=== PATIENT | female | born 1950 | race African-American/Black ===

== ENCOUNTER 2021-08-02 12:20 | Inpatient (IN) | payer MEDICAID, OTHER ==
[~2021-08-02] VITALS: Ht 165.1 cm; Wt 127.5 kg
[2021-08-02] MEDS ORDERED: methylPREDNISolone SOD SUCC 125 MG/2 ML VL ONE (12:26)
[2021-08-02] MEDS ORDERED: SODIUM CHLORIDE 0.9% 1,000 ML IV ONE (12:30)
[2021-08-02] MEDS ORDERED: ALBUTEROL SULF 2.5 MG/0.5ML(0.5%) NEB SOLN NEB ONE (12:30)
[2021-08-02] MEDS ORDERED: IPRATROPIUM BROM 0.5 MG/2.5ML INH SOL NEB ONE (12:30)
[2021-08-02] MEDS ORDERED: methylPREDNISolone SOD SUCC 125 MG/2 ML VL IV ONE (12:30)
[2021-08-02 12:50] LABS: Red Cell Distribution Width 17.9 % (11.8-14.3)
[2021-08-02 12:52] LABS: Basophils # (auto) 0.1 10 ^3/uL (0-0.2); Basophils % (auto) 1.5 % (0.0-2.0); Eosinophils # (auto) 0 10 ^3/uL (0-0.8); Eosinophils % (auto) 0.5 % (0.0-7.0); Hematocrit 38.4 % (36.0-46.0); Hemoglobin 12.1 g/dL (12.2-16.2); Lymphocytes # (auto) 1.2 10 ^3/uL (0.4-5.4); Lymphocytes % (auto) 20.2 % (10.0-50.0); Mean Corpuscular Hemoglobin 35.7 pg (28.0-32.0); Mean Corpuscular Hgb Conc. 31.4 g/dL (32.0-36.0); Mean Corpuscular Volume 113.5 fL (80.0-100.0); Monocytes # (auto) 0.1 10 ^3/uL (0-1.3); Monocytes % (auto) 1.8 % (0.0-12.0); Neutrophils # (auto) 4.6 10 ^3/uL (1.6-8.6); Nucleated Red Blood Cells % 0.5 %; Red Blood Cells 3.39 10^6/uL (4.0-5.20); White Blood Cell 6.1 10^3/uL (4.4-10.8)
[2021-08-02] MEDS ORDERED: LORazepam 2MG/ML-1ML VIAL ONE (12:58)
[2021-08-02 13:08] LABS: Albumin 2.9 g/dL (3.4-5.0); Magnesium 2.4 mg/dL (1.6-2.6); Potassium 3.9 mmol/L (3.5-5.1)
[2021-08-02 13:13] LABS: INR 1.19 (0.9-1.15); Partial Thromboplastin Time 23.5 sec (23.6-33.0)
[2021-08-02 13:14] LABS: BUN/Creatinine Ratio 10.1; Bilirubin, Total 0.6 mg/dL (0.2-1.0); Total Protein 7.6 g/dL (6.4-8.2)
[2021-08-02] MEDS ORDERED: FUROSEMIDE 40 MG/4 ML VIAL IV ONE (13:30)
[2021-08-02] MEDS ORDERED: LORazepam 2MG/ML-1ML VIAL IV ONE ×2 (14:00→16:00)
[2021-08-02 14:34] VITALS: BP 173/101
[2021-08-02] MEDS ORDERED: ENOXAPARIN SOD 40 MG/0.4 ML SYRINGE SC ONE (15:15)
[2021-08-02] MEDS ORDERED: ONDANSETRON HCL 4 MG/2 ML VIAL IV PRN (15:15)
[2021-08-02] MEDS ORDERED: cefTRIAXone 1GM/50ML D5W 50 ML IV ONE (15:15)
[2021-08-02] MEDS ORDERED: IPRATROPIUM BROM 0.5 MG/2.5ML INH SOL NEB PRN (15:15)
[2021-08-02] MEDS ORDERED: levoFLOXacin 500MG 100 ML IV ONE (15:15)
[2021-08-02] MEDS ORDERED: NITROGLYCERIN 0.4 MG SL TAB SL PRN (15:15)
[2021-08-02] MEDS ORDERED: ACETAMINOPHEN 325 MG TAB PO PRN (15:15)
[2021-08-02] MEDS ORDERED: MORPHINE SULFATE INJECTION 2 MG/ML SYRG IV PRN (15:15)
[2021-08-02] MEDS ORDERED: DEXTROSE (50%) 50ML SYRG IV PRN (15:15)
[2021-08-02 15:36] VITALS: BP 156/83
[2021-08-02] MEDS: ACCU-CHEK COMFORT CURVE STRIP VI SCH ×2 (16:23→20:20)
[2021-08-02] MEDS: InsuLIN REG 1unit/0.01ml Soln (100units/ml) SC SCH ×2 (16:23→20:38)
[2021-08-02 16:25] LABS: Urine Bacteria MANY /hpf (None Seen); Urine Blood 2+ /uL (Negative); Urine Hyaline Cast MOD /lpf (0 - 2); Urine Mucus FEW (None Seen); Urine Specific Gravity 1.013 (1.001-1.035); Urine WBC 65 /hpf (0 - 5)
[2021-08-02] MEDS ORDERED: ALBUTEROL SULF 2.5 MG/0.5ML(0.5%) NEB SOLN NEB SCH (18:00)
[2021-08-02] MEDS ORDERED: ENOXAPARIN SOD 30 MG/0.3 ML SYRINGE IV ONE (18:00)
[2021-08-02] MEDS ORDERED: IPRATROPIUM BROM 0.5 MG/2.5ML INH SOL NEB SCH (18:00)
[2021-08-02 18:26] VITALS: BP 125/62
[2021-08-02] MEDS: ENOXAPARIN SOD 120 MG/0.8 ML SYRINGE SC SCH (18:30)
[2021-08-02] MEDS: ALBUTEROL SULF 2.5 MG/0.5ML(0.5%) NEB SOLN NEB SCH (18:47)
[2021-08-02] MEDS ORDERED: SUCCINYLCHOLINE CHLORIDE 20 MG/ML 10ML VIAL IV ONE (19:39)
[2021-08-02] MEDS ORDERED: ETOMIDATE (2MG/ML) 20ML VIAL IV ONE (19:39)
[2021-08-02 19:46] VITALS: BP 126/54
[2021-08-02] MEDS ORDERED: methylPREDNISolone SOD SUCC 40 MG/ML VL IV SCH (22:00)
[2021-08-02 22:25] VITALS: BP 127/79
[2021-08-02] MEDS: ATORVASTATIN 20 MG TAB PO SCH (22:46)
[2021-08-03] MEDS: ACCU-CHEK COMFORT CURVE STRIP VI SCH ×6 (00:28→20:52)
[2021-08-03] MEDS: InsuLIN REG 1unit/0.01ml Soln (100units/ml) SC SCH ×6 (00:39→20:53)
[2021-08-03] MEDS ORDERED: diazePAM 5 MG TAB PO ONE (03:15)
[2021-08-03 03:44] VITALS: BP 118/71
[2021-08-03] MEDS: ALBUTEROL SULF 2.5 MG/0.5ML(0.5%) NEB SOLN NEB SCH ×6 (03:49→22:39)
[2021-08-03] MEDS: IPRATROPIUM BROM 0.5 MG/2.5ML INH SOL NEB SCH ×6 (03:50→22:39)
[2021-08-03 07:22] LABS: Basophils # (auto) 0 10 ^3/uL (0-0.2); Basophils % (auto) 0.1 % (0.0-2.0); Eosinophils # (auto) 0 10 ^3/uL (0-0.8); Monocytes # (auto) 0.9 10 ^3/uL (0-1.3); Red Cell Distribution Width 17.6 % (11.8-14.3)
[2021-08-03 07:25] LABS: Hematocrit 33.5 % (36.0-46.0); Hemoglobin 10.9 g/dL (12.2-16.2); Lymphocytes # (auto) 0.7 10 ^3/uL (0.4-5.4); Lymphocytes % (auto) 4.7 % (10.0-50.0); Mean Corpuscular Hemoglobin 35.3 pg (28.0-32.0); Mean Corpuscular Hgb Conc. 32.5 g/dL (32.0-36.0); Mean Corpuscular Volume 108.8 fL (80.0-100.0); Monocytes % (auto) 5.9 % (0.0-12.0); Neutrophils # (auto) 13.7 10 ^3/uL (1.6-8.6); Neutrophils % (auto) 89.3 % (37.0-80.0); Nucleated Red Blood Cells % 0.1 %; Red Blood Cells 3.08 10^6/uL (4.0-5.20); White Blood Cell 15.3 10^3/uL (4.4-10.8)
[2021-08-03 07:49] LABS: BUN/Creatinine Ratio 15.6; Calcium 6.7 mg/dL (8.5-10.1); Magnesium 2.4 mg/dL (1.6-2.6)
[2021-08-03] MEDS ORDERED: cefTRIAXone 1GM/50ML D5W 50 ML IV SCH (09:00)
[2021-08-03] MEDS ORDERED: AZITHROMYCIN 500MG/ 250ML 250 ML IV SCH (10:00)
[2021-08-03] MEDS ORDERED: ENOXAPARIN SOD 40 MG/0.4 ML SYRINGE SC SCH (10:00)
[2021-08-03] MEDS: CLOPIDOGREL BISULFATE 75 MG TAB PO SCH (10:21)
[2021-08-03] MEDS: levoFLOXacin 250MG 50 ML IV SCH (10:21)
[2021-08-03] MEDS: DOCUSATE SOD 100 MG CAP PO SCH (10:21)
[2021-08-03] MEDS: POTASSIUM CHL 20 Meq TABLET PO SCH ×2 (10:21→22:14)
[2021-08-03] MEDS: LOSARTAN POTASSIUM 25 MG TAB PO SCH (10:21)
[2021-08-03] MEDS: SPIRONOLACTONE 25 MG TAB PO SCH (10:21)
[2021-08-03] MEDS: cefTRIAXone 1GM/50ML D5W 50 ML IV SCH (10:21)
[2021-08-03] MEDS: methylPREDNISolone SOD SUCC 125 MG/2 ML VL IV SCH (10:21)
[2021-08-03] MEDS: ENOXAPARIN SOD 120 MG/0.8 ML SYRINGE SC SCH ×2 (10:49→22:00)
[2021-08-03] MEDS: FUROSEMIDE INJECTION 100 MG in D5W 5% 100 ML IV SCH ×2 (11:05→20:11)
[2021-08-03] MEDS ORDERED: ONDANSETRON HCL 4 MG/2 ML VIAL IV PRN (12:00)
[2021-08-03] MEDS: MORPHINE SULFATE INJECTION 2 MG/ML SYRG IV PRN ×3 (12:04→20:56)
[2021-08-03 20:12] VITALS: BP 111/51
[2021-08-03 22:00] VITALS: BP 107/60
[2021-08-03] MEDS: ATORVASTATIN 20 MG TAB PO SCH (22:14)
[2021-08-04] MEDS: MORPHINE SULFATE INJECTION 2 MG/ML SYRG IV PRN ×5 (00:40→20:55)
[2021-08-04] MEDS: ACCU-CHEK COMFORT CURVE STRIP VI SCH ×6 (01:28→20:17)
[2021-08-04] MEDS: InsuLIN REG 1unit/0.01ml Soln (100units/ml) SC SCH ×6 (01:28→20:36)
[2021-08-04] MEDS ORDERED: LEVO175T62 PO (01:49)
[2021-08-04] MEDS ORDERED: METH2.5T PO (01:55)
[2021-08-04] MEDS ORDERED: AMIT25TA12 PO (01:55)
[2021-08-04] MEDS ORDERED: HYDR25TA4 PO (01:55)
[2021-08-04] MEDS ORDERED: LOSA25TA38 PO (01:55)
[2021-08-04] MEDS ORDERED: ATOR10TA52 PO (01:55)
[2021-08-04] MEDS ORDERED: SULF500T8 PO (01:55)
[2021-08-04] MEDS ORDERED: POTA10TA51 PO (01:55)
[2021-08-04] MEDS ORDERED: TRAZ100T3 PO (01:55)
[2021-08-04] MEDS ORDERED: GLIP5TAB12 PO (01:55)
[2021-08-04] MEDS ORDERED: FOLI1TAB6 PO (01:55)
[2021-08-04 05:00] VITALS: BP 118/70
[2021-08-04] MEDS: FUROSEMIDE INJECTION 100 MG in D5W 5% 100 ML IV SCH ×2 (05:10→16:11)
[2021-08-04] MEDS: ALBUTEROL SULF 2.5 MG/0.5ML(0.5%) NEB SOLN NEB SCH ×5 (06:18→21:57)
[2021-08-04] MEDS: IPRATROPIUM BROM 0.5 MG/2.5ML INH SOL NEB SCH ×5 (06:18→21:57)
[2021-08-04 06:54] LABS: Basophils # (auto) 0 10 ^3/uL (0-0.2); Eosinophils # (auto) 0 10 ^3/uL (0-0.8); Hemoglobin 10.2 g/dL (12.2-16.2); Monocytes # (auto) 0.6 10 ^3/uL (0-1.3)
[2021-08-04 06:56] LABS: Basophils % (auto) 0.1 % (0.0-2.0); Hematocrit 30.8 % (36.0-46.0); Lymphocytes % (auto) 7.9 % (10.0-50.0); Mean Corpuscular Hemoglobin 35.3 pg (28.0-32.0); Mean Corpuscular Hgb Conc. 33.1 g/dL (32.0-36.0); Monocytes % (auto) 5.2 % (0.0-12.0); Neutrophils # (auto) 10.5 10 ^3/uL (1.6-8.6); Neutrophils % (auto) 86.8 % (37.0-80.0); Red Blood Cells 2.89 10^6/uL (4.0-5.20); Red Cell Distribution Width 17.3 % (11.8-14.3); White Blood Cell 12.1 10^3/uL (4.4-10.8)
[2021-08-04 06:59] LABS: Mean Corpuscular Volume 106.7 fL (80.0-100.0)
[2021-08-04 07:09] LABS: BUN/Creatinine Ratio 18.7; Calcium 6.4 mg/dL (8.5-10.1); Potassium 4.7 mmol/L (3.5-5.1)
[2021-08-04] MEDS ORDERED: IOHEXOL 350 MG/ML 100ML IJ ONE (08:10)
[2021-08-04] MEDS ORDERED: HEPARIN IN NS 1000Units/500mL 1,500 ML ONE (08:10)
[2021-08-04] MEDS ORDERED: LIDOCAINE 2%HCL (LOCAL ANESTH.) INJ 20ML MDV ONE (08:10)
[2021-08-04] MEDS ORDERED: fentaNYL CITRATE 100 MCG/2 ML VL ONE (08:29)
[2021-08-04] MEDS ORDERED: ANGIOMAX 250 MG VIAL IV ONE (08:29)
[2021-08-04] MEDS ORDERED: SODIUM CHL 0.9% 50 ML ONE ×2 (08:29→08:49)
[2021-08-04] MEDS ORDERED: MIDAZOLAM HCL 2MG/2ML 2ml VIAL (1mg/ml) ONE (08:29)
[2021-08-04 09:00] VITALS: BP 119/58
[2021-08-04] MEDS ORDERED: IODIXANOL 320MG/ML 100ML BTL IV ONE (09:40)
[2021-08-04] MEDS: methylPREDNISolone SOD SUCC 125 MG/2 ML VL IV SCH (11:51)
[2021-08-04] MEDS: CLOPIDOGREL BISULFATE 75 MG TAB PO SCH (11:52)
[2021-08-04] MEDS: cefTRIAXone 1GM/50ML D5W 50 ML IV SCH (11:52)
[2021-08-04] MEDS: DOCUSATE SOD 100 MG CAP PO SCH (11:52)
[2021-08-04] MEDS: POTASSIUM CHL 20 Meq TABLET PO SCH ×2 (11:52→21:48)
[2021-08-04] MEDS: ENOXAPARIN SOD 120 MG/0.8 ML SYRINGE SC SCH ×2 (11:52→21:49)
[2021-08-04] MEDS: SPIRONOLACTONE 25 MG TAB PO SCH (11:53)
[2021-08-04] MEDS: LOSARTAN POTASSIUM 25 MG TAB PO SCH (11:54)
[2021-08-04 13:00] VITALS: BP 117/66
[2021-08-04] MEDS: levoFLOXacin 250MG 50 ML IV SCH (13:00)
[2021-08-04 14:21] LABS: INR 1.51 (0.9-1.15); Partial Thromboplastin Time 56.5 sec (23.6-33.0)
[2021-08-04] MEDS: NITROGLYCERIN 0.4 MG SL TAB SL PRN ×3 (16:22→16:49)
[2021-08-04] MEDS ORDERED: HEPARIN DRIP/D5W 100UNITS/ML 250 ML IV SCH (17:30)
[2021-08-04 20:05] LABS: Basophils # (auto) 0 10 ^3/uL (0-0.2); Eosinophils # (auto) 0 10 ^3/uL (0-0.8); Hemoglobin 10.6 g/dL (12.2-16.2); Lymphocytes # (auto) 0.3 10 ^3/uL (0.4-5.4); Monocytes # (auto) 0.1 10 ^3/uL (0-1.3)
[2021-08-04 20:06] LABS: Basophils % (auto) 0.1 % (0.0-2.0); Hematocrit 32.7 % (36.0-46.0); Lymphocytes % (auto) 3.1 % (10.0-50.0); Mean Corpuscular Hemoglobin 34.6 pg (28.0-32.0); Mean Corpuscular Hgb Conc. 32.3 g/dL (32.0-36.0); Mean Corpuscular Volume 107.1 fL (80.0-100.0); Monocytes % (auto) 1.7 % (0.0-12.0); Neutrophils # (auto) 7.9 10 ^3/uL (1.6-8.6); Neutrophils % (auto) 95.1 % (37.0-80.0); Red Blood Cells 3.05 10^6/uL (4.0-5.20); Red Cell Distribution Width 17.8 % (11.8-14.3); White Blood Cell 8.3 10^3/uL (4.4-10.8)
[2021-08-04 20:20] LABS: INR 1.24 (0.9-1.15)
[2021-08-04] MEDS: ATORVASTATIN 20 MG TAB PO SCH (21:48)
[2021-08-04 21:59] VITALS: BP 126/77
[2021-08-05] MEDS: InsuLIN REG 1unit/0.01ml Soln (100units/ml) SC SCH ×6 (00:25→20:29)
[2021-08-05] MEDS: ACCU-CHEK COMFORT CURVE STRIP VI SCH ×7 (00:25→23:59)
[2021-08-05] MEDS: MORPHINE SULFATE INJECTION 2 MG/ML SYRG IV PRN ×6 (00:30→23:51)
[2021-08-05 01:52] LABS: INR 1.23 (0.9-1.15); Partial Thromboplastin Time 41.1 sec (23.6-33.0)
[2021-08-05] MEDS: FUROSEMIDE INJECTION 100 MG in D5W 5% 100 ML IV SCH ×3 (02:32→21:06)
[2021-08-05 05:57] VITALS: BP 121/63
[2021-08-05] MEDS: IPRATROPIUM BROM 0.5 MG/2.5ML INH SOL NEB SCH ×5 (06:30→22:28)
[2021-08-05] MEDS: ALBUTEROL SULF 2.5 MG/0.5ML(0.5%) NEB SOLN NEB SCH ×5 (06:30→22:28)
[2021-08-05 07:40] LABS: Basophils # (auto) 0 10 ^3/uL (0-0.2); Eosinophils # (auto) 0 10 ^3/uL (0-0.8); Hemoglobin 10.2 g/dL (12.2-16.2); Lymphocytes # (auto) 0.6 10 ^3/uL (0.4-5.4); Monocytes # (auto) 0.5 10 ^3/uL (0-1.3); White Blood Cell 9.5 10^3/uL (4.4-10.8)
[2021-08-05 07:43] LABS: Basophils % (auto) 0.2 % (0.0-2.0); Hematocrit 30.6 % (36.0-46.0); Lymphocytes % (auto) 6.2 % (10.0-50.0); Mean Corpuscular Hemoglobin 35.2 pg (28.0-32.0); Mean Corpuscular Hgb Conc. 33.2 g/dL (32.0-36.0); Monocytes % (auto) 4.9 % (0.0-12.0); Neutrophils # (auto) 8.4 10 ^3/uL (1.6-8.6); Neutrophils % (auto) 88.7 % (37.0-80.0); Nucleated Red Blood Cells % 0.1 %; Red Blood Cells 2.89 10^6/uL (4.0-5.20); Red Cell Distribution Width 17.7 % (11.8-14.3)
[2021-08-05 07:52] LABS: Calcium 6.3 mg/dL (8.5-10.1); Potassium 4.9 mmol/L (3.5-5.1)
[2021-08-05 07:54] LABS: Mean Corpuscular Volume 106.1 fL (80.0-100.0)
[2021-08-05 07:56] LABS: BUN/Creatinine Ratio 22.4
[2021-08-05] MEDS: levoFLOXacin 250MG 50 ML IV SCH (08:25)
[2021-08-05] MEDS: DOCUSATE SOD 100 MG CAP PO SCH (08:26)
[2021-08-05] MEDS: methylPREDNISolone SOD SUCC 125 MG/2 ML VL IV SCH (08:26)
[2021-08-05] MEDS: CLOPIDOGREL BISULFATE 75 MG TAB PO SCH (08:26)
[2021-08-05] MEDS: POTASSIUM CHL 20 Meq TABLET PO SCH ×2 (08:27→21:01)
[2021-08-05] MEDS: LOSARTAN POTASSIUM 25 MG TAB PO SCH (08:27)
[2021-08-05] MEDS: SPIRONOLACTONE 25 MG TAB PO SCH (08:27)
[2021-08-05 09:00] VITALS: BP 126/78
[2021-08-05] MEDS ORDERED: HEPARIN DRIP/D5W 100UNITS/ML 250 ML IV SCH (09:15)
[2021-08-05 09:42] LABS: INR 1.18 (0.9-1.15); Partial Thromboplastin Time 32.3 sec (23.6-33.0)
[2021-08-05] MEDS ORDERED: HEPARIN SODIUM (PORCINE) 5000 UNITS/ML 1ML VIAL IV ONE (10:30)
[2021-08-05] MEDS: HEPARIN DRIP/D5W 100UNITS/ML 250 ML IV SCH (11:25)
[2021-08-05 11:45] VITALS: BP 126/78
[2021-08-05 12:50] VITALS: BP 123/71
[2021-08-05 16:59] VITALS: BP 132/80
[2021-08-05 19:37] LABS: INR 1.2 (0.9-1.15); Partial Thromboplastin Time 36.1 sec (23.6-33.0)
[2021-08-05] MEDS: FAMOTIDINE 20 MG TAB PO SCH (21:02)
[2021-08-05] MEDS: ATORVASTATIN 20 MG TAB PO SCH (21:02)
[2021-08-05 22:00] VITALS: BP 119/71
[2021-08-06] MEDS: InsuLIN REG 1unit/0.01ml Soln (100units/ml) SC SCH ×6 (00:06→19:52)
[2021-08-06 02:57] LABS: INR 1.21 (0.9-1.15); Partial Thromboplastin Time 49.6 sec (23.6-33.0)
[2021-08-06] MEDS: ACCU-CHEK COMFORT CURVE STRIP VI SCH ×5 (04:08→19:52)
[2021-08-06 05:00] VITALS: BP 122/73
[2021-08-06] MEDS: MORPHINE SULFATE INJECTION 2 MG/ML SYRG IV PRN ×4 (06:02→16:22)
[2021-08-06] MEDS: HEPARIN DRIP/D5W 100UNITS/ML 250 ML IV SCH ×2 (06:09→19:45)
[2021-08-06] MEDS: IPRATROPIUM BROM 0.5 MG/2.5ML INH SOL NEB SCH ×4 (07:23→22:05)
[2021-08-06] MEDS: ALBUTEROL SULF 2.5 MG/0.5ML(0.5%) NEB SOLN NEB SCH ×4 (07:23→22:05)
[2021-08-06 07:47] LABS: Basophils # (auto) 0 10 ^3/uL (0-0.2); Basophils % (auto) 0.1 % (0.0-2.0); Eosinophils # (auto) 0 10 ^3/uL (0-0.8); Hematocrit 31.9 % (36.0-46.0); Hemoglobin 10.6 g/dL (12.2-16.2); Lymphocytes # (auto) 1.1 10 ^3/uL (0.4-5.4); Lymphocytes % (auto) 13.8 % (10.0-50.0); Mean Corpuscular Hemoglobin 35.3 pg (28.0-32.0); Mean Corpuscular Hgb Conc. 33.2 g/dL (32.0-36.0); Mean Corpuscular Volume 106.5 fL (80.0-100.0); Monocytes # (auto) 0.4 10 ^3/uL (0-1.3); Monocytes % (auto) 5.3 % (0.0-12.0); Neutrophils # (auto) 6.6 10 ^3/uL (1.6-8.6); Neutrophils % (auto) 80.8 % (37.0-80.0); Red Cell Distribution Width 17.4 % (11.8-14.3); White Blood Cell 8.2 10^3/uL (4.4-10.8)
[2021-08-06 07:53] LABS: Calcium 6.2 mg/dL (8.5-10.1); INR 1.21 (0.9-1.15); Partial Thromboplastin Time 50.9 sec (23.6-33.0); Potassium 4.2 mmol/L (3.5-5.1)
[2021-08-06 07:56] LABS: BUN/Creatinine Ratio 23.9
[2021-08-06] MEDS: SPIRONOLACTONE 25 MG TAB PO SCH (08:59)
[2021-08-06] MEDS: DOCUSATE SOD 100 MG CAP PO SCH (08:59)
[2021-08-06] MEDS: POTASSIUM CHL 20 Meq TABLET PO SCH ×2 (08:59→21:35)
[2021-08-06 09:00] VITALS: BP 108/59
[2021-08-06] MEDS: CLOPIDOGREL BISULFATE 75 MG TAB PO SCH (09:00)
[2021-08-06] MEDS: LOSARTAN POTASSIUM 25 MG TAB PO SCH (09:00)
[2021-08-06] MEDS: methylPREDNISolone SOD SUCC 125 MG/2 ML VL IV SCH (09:02)
[2021-08-06] MEDS: levoFLOXacin 250MG 50 ML IV SCH (09:32)
[2021-08-06] MEDS ORDERED: FAMOTIDINE 20 MG TAB PO SCH (10:00)
[2021-08-06 13:00] VITALS: BP 146/103
[2021-08-06] MEDS: FUROSEMIDE INJECTION 100 MG in D5W 5% 100 ML IV SCH ×2 (13:25→17:45)
[2021-08-06 14:28] LABS: INR 1.24 (0.9-1.15)
[2021-08-06 14:31] LABS: Partial Thromboplastin Time 77.7 sec (23.6-33.0)
[2021-08-06 16:58] VITALS: BP 145/87
[2021-08-06 21:34] VITALS: BP 96/56
[2021-08-06] MEDS: FAMOTIDINE 20 MG TAB PO SCH (21:35)
[2021-08-06] MEDS: ATORVASTATIN 20 MG TAB PO SCH (21:35)
[2021-08-06 21:47] LABS: INR 1.22 (0.9-1.15); Partial Thromboplastin Time 60.3 sec (23.6-33.0)
[2021-08-06] MEDS ORDERED: HYDROcodone-ACET 5/325MG TAB PO PRN (22:15)
[2021-08-06] MEDS: HYDROcodone-ACET 5/325MG TAB PO PRN (22:26)
[2021-08-07] MEDS: ACCU-CHEK COMFORT CURVE STRIP VI SCH ×6 (00:02→20:13)
[2021-08-07] MEDS: FUROSEMIDE INJECTION 100 MG in D5W 5% 100 ML IV SCH ×3 (02:21→23:45)
[2021-08-07] MEDS: InsuLIN REG 1unit/0.01ml Soln (100units/ml) SC SCH ×6 (04:00→20:14)
[2021-08-07 04:21] LABS: Basophils # (auto) 0 10 ^3/uL (0-0.2); Basophils % (auto) 0.2 % (0.0-2.0); Eosinophils # (auto) 0 10 ^3/uL (0-0.8); Hematocrit 33.3 % (36.0-46.0); Hemoglobin 10.9 g/dL (12.2-16.2); Monocytes # (auto) 0.4 10 ^3/uL (0-1.3)
[2021-08-07 04:24] LABS: Lymphocytes # (auto) 0.9 10 ^3/uL (0.4-5.4); Mean Corpuscular Hgb Conc. 32.9 g/dL (32.0-36.0); Mean Corpuscular Volume 106.4 fL (80.0-100.0); Monocytes % (auto) 5.7 % (0.0-12.0); Neutrophils # (auto) 5.8 10 ^3/uL (1.6-8.6); Neutrophils % (auto) 82.1 % (37.0-80.0); Nucleated Red Blood Cells % 0.2 %; Red Blood Cells 3.13 10^6/uL (4.0-5.20); Red Cell Distribution Width 17.2 % (11.8-14.3); White Blood Cell 7.1 10^3/uL (4.4-10.8)
[2021-08-07] MEDS: HYDROcodone-ACET 5/325MG TAB PO PRN ×3 (04:30→18:01)
[2021-08-07 04:40] LABS: Potassium 4.3 mmol/L (3.5-5.1)
[2021-08-07 04:47] LABS: BUN/Creatinine Ratio 23.1; Calcium 6.3 mg/dL (8.5-10.1)
[2021-08-07 05:00] VITALS: BP 110/60
[2021-08-07 05:03] LABS: INR 1.23 (0.9-1.15); Partial Thromboplastin Time 56.1 sec (23.6-33.0)
[2021-08-07] MEDS: ALBUTEROL SULF 2.5 MG/0.5ML(0.5%) NEB SOLN NEB SCH ×6 (05:50→22:39)
[2021-08-07] MEDS: IPRATROPIUM BROM 0.5 MG/2.5ML INH SOL NEB SCH ×6 (05:50→22:39)
[2021-08-07 08:00] VITALS: BP 138/85
[2021-08-07] MEDS: DOCUSATE SOD 100 MG CAP PO SCH (08:30)
[2021-08-07] MEDS: SPIRONOLACTONE 25 MG TAB PO SCH (08:31)
[2021-08-07] MEDS: CLOPIDOGREL BISULFATE 75 MG TAB PO SCH (08:31)
[2021-08-07] MEDS: POTASSIUM CHL 20 Meq TABLET PO SCH ×2 (08:31→21:19)
[2021-08-07] MEDS: LOSARTAN POTASSIUM 25 MG TAB PO SCH (08:32)
[2021-08-07] MEDS: methylPREDNISolone SOD SUCC 125 MG/2 ML VL IV SCH (08:33)
[2021-08-07] MEDS: levoFLOXacin 250MG 50 ML IV SCH (12:15)
[2021-08-07 12:43] VITALS: BP 142/95
[2021-08-07] MEDS: HEPARIN DRIP/D5W 100UNITS/ML 250 ML IV SCH (13:00)
[2021-08-07 13:42] LABS: INR 1.24 (0.9-1.15)
[2021-08-07] MEDS: MORPHINE SULFATE INJECTION 2 MG/ML SYRG IV PRN (14:14)
[2021-08-07 16:29] VITALS: BP 156/82
[2021-08-07] MEDS: FAMOTIDINE 20 MG TAB PO SCH (21:19)
[2021-08-07] MEDS: ATORVASTATIN 20 MG TAB PO SCH (21:19)
[2021-08-07 21:30] LABS: INR 1.25 (0.9-1.15); Partial Thromboplastin Time 60.9 sec (23.6-33.0)
[2021-08-07 22:00] VITALS: BP 118/56
[2021-08-08] MEDS: InsuLIN REG 1unit/0.01ml Soln (100units/ml) SC SCH
[2021-08-08] MEDS: ACCU-CHEK COMFORT CURVE STRIP VI SCH (00:04)
[2021-08-08] MEDS: HYDROcodone-ACET 5/325MG TAB PO PRN (00:05)
[2021-08-08] MEDS: HEPARIN DRIP/D5W 100UNITS/ML 250 ML IV SCH (02:39)
[2021-08-08 03:16] LABS: Basophils # (auto) 0 10 ^3/uL (0-0.2); Eosinophils # (auto) 0 10 ^3/uL (0-0.8); Eosinophils % (auto) 0.1 % (0.0-7.0); Hemoglobin 12.2 g/dL (12.2-16.2); Monocytes # (auto) 0.7 10 ^3/uL (0-1.3); Nucleated Red Blood Cells % 0.2 %
[2021-08-08 03:19] LABS: Basophils % (auto) 0.3 % (0.0-2.0); Hematocrit 37.4 % (36.0-46.0); Lymphocytes # (auto) 1.4 10 ^3/uL (0.4-5.4); Lymphocytes % (auto) 14.9 % (10.0-50.0); Mean Corpuscular Hemoglobin 34.4 pg (28.0-32.0); Mean Corpuscular Hgb Conc. 32.6 g/dL (32.0-36.0); Mean Corpuscular Volume 105.4 fL (80.0-100.0); Monocytes % (auto) 6.9 % (0.0-12.0); Neutrophils # (auto) 7.4 10 ^3/uL (1.6-8.6); Neutrophils % (auto) 77.8 % (37.0-80.0); Red Blood Cells 3.55 10^6/uL (4.0-5.20); Red Cell Distribution Width 16.9 % (11.8-14.3); White Blood Cell 9.4 10^3/uL (4.4-10.8)
[2021-08-08 03:35] LABS: BUN/Creatinine Ratio 22.3; Calcium 6.5 mg/dL (8.5-10.1); Potassium 3.5 mmol/L (3.5-5.1)
[2021-08-08 03:41] LABS: INR 1.24 (0.9-1.15); Partial Thromboplastin Time 65.3 sec (23.6-33.0)
== END 2021-08-08 03:31 | disposition short-term general hospital (02) | DRG 280 ==
LOC: ER 12:20 → EDBD 12:20 → TELE 15:32 → TELE-WESTW 08-03 19:58
PROVIDERS: ADMIT Hospitalist; ATTEND Internal Medicine
PROC: 5A09357 Assistance with Respiratory Ventilation, Less than 24 Consecutive Hours, Continuous Positive Airway Pressure (ICD-10-PCS; 2021-08-02)
PROC: B211YZZ Fluoroscopy of Multiple Coronary Arteries using Other Contrast (ICD-10-PCS; 2021-08-04)
PROC: 05HA33Z Insertion of Infusion Device into Left Brachial Vein, Percutaneous Approach (ICD-10-PCS; principal; 2021-08-05)
PROC: B54NZZA Ultrasonography of Left Upper Extremity Veins, Guidance (ICD-10-PCS; 2021-08-05)
DX: I21.4 Non-ST elevation (NSTEMI) myocardial infarction (principal); I50.23 Acute on chronic systolic (congestive) heart failure; J96.00 Acute respiratory failure, unspecified whether with hypoxia or hypercapnia; E44.0 Moderate protein-calorie malnutrition; J45.901 Unspecified asthma with (acute) exacerbation; Z68.42 Body mass index [BMI] 45.0-49.9, adult; I13.0 Hypertensive heart and chronic kidney disease with heart failure and stage 1 through stage 4 chronic kidney disease, or unspecified chronic kidney disease; N17.9 Acute kidney failure, unspecified; E11.65 Type 2 diabetes mellitus with hyperglycemia; D75.89 Other specified diseases of blood and blood-forming organs; D64.9 Anemia, unspecified; N18.30 Chronic kidney disease, stage 3 unspecified; E11.22 Type 2 diabetes mellitus with diabetic chronic kidney disease; I25.10 Atherosclerotic heart disease of native coronary artery without angina pectoris; E66.01 Morbid (severe) obesity due to excess calories; E78.5 Hyperlipidemia, unspecified; G62.9 Polyneuropathy, unspecified; I35.0 Nonrheumatic aortic (valve) stenosis; I44.7 Left bundle-branch block, unspecified; R00.1 Bradycardia, unspecified; Z20.822 Contact with and (suspected) exposure to COVID-19; Z86.73 Personal history of transient ischemic attack (TIA), and cerebral infarction without residual deficits; Z95.1 Presence of aortocoronary bypass graft
CPT/HCPCS: 36415; 36600; 71045; 80048; 80053; 80061; 81001; 82805; 82962; 83735; 83880; 84443; 84484; 85025; 85379; 85610; 85730; 86850; 86900; 86901; 87040; 87081; 87426; 93005; 93306; 93454; 93970; 94640; 94660; 96361; 96365; 96367; 96375; 99152; 99153; 99291; G0378; J0330; J0696; J1815; J1956; J2250; J2405; J7060; Q9967

== ENCOUNTER 2021-10-22 17:08 | Emergency (ER) | payer OTHER ==
[~2021-10-22] VITALS: Ht 172.7 cm; Wt 130.6 kg
[~2021-10-22 17:08] MED LIST: AMIT25TA12 PO; ATOR10TA52 PO; FOLI1TAB6 PO; GLIP5TAB12 PO; HYDR25TA4 PO; LEVO175T62 PO; LOSA25TA38 PO; METH2.5T PO; POTA10TA51 PO; SULF500T8 PO; TRAZ100T3 PO
[2021-10-22] MEDS ORDERED: HYDROcodone-ACET 7.5/325MG TAB PO ONE (19:00)
[2021-10-22] MEDS ORDERED: HYDR-4609 PO (21:47)
[2021-10-22 22:11] VITALS: BP 144/81
== END 2021-10-22 22:12 | disposition home or self-care (01) ==
LOC: ER 17:08
DX: M79.671 Pain in right foot (principal); J45.909 Unspecified asthma, uncomplicated; E11.9 Type 2 diabetes mellitus without complications; E78.5 Hyperlipidemia, unspecified; E03.9 Hypothyroidism, unspecified; I10 Essential (primary) hypertension; Z90.89 Acquired absence of other organs; Z79.899 Other long term (current) drug therapy
CPT/HCPCS: 73630; 93971

== ENCOUNTER 2022-05-22 22:10 | Emergency (ER) | payer OTHER ==
[~2022-05-22] VITALS: Ht 167.6 cm; Wt 150.0 kg
[~2022-05-22 22:10] MED LIST changes: +HYDR-4609 PO
[2022-05-23 00:03] LABS: Basophils # (auto) 0 10 ^3/uL (0-0.2); Mean Corpuscular Hgb Conc. 30.3 g/dL (32.0-36.0); Monocytes # (auto) 0.5 10 ^3/uL (0-1.3); Monocytes % (auto) 8.3 % (0.0-12.0)
[2022-05-23 00:04] LABS: Basophils % (auto) 0.4 % (0.0-2.0); Eosinophils # (auto) 0 10 ^3/uL (0-0.8); Eosinophils % (auto) 0.1 % (0.0-7.0); Hematocrit 26.5 % (36.0-46.0); Lymphocytes # (auto) 0.3 10 ^3/uL (0.4-5.4); Lymphocytes % (auto) 5.5 % (10.0-50.0); Mean Corpuscular Hemoglobin 37.4 pg (28.0-32.0); Mean Corpuscular Volume 123.4 fL (80.0-100.0); Neutrophils # (auto) 5.1 10 ^3/uL (1.6-8.6); Neutrophils % (auto) 85.7 % (37.0-80.0); Nucleated Red Blood Cells % 1.1 %; Red Blood Cells 2.15 10^6/uL (4.0-5.20)
[2022-05-23 00:21] LABS: Albumin 2.9 g/dL (3.4-5.0); BUN/Creatinine Ratio 13.5; Calcium 6.1 mg/dL (8.5-10.1)
[2022-05-23 00:46] LABS: Bilirubin, Total 3.2 mg/dL (0.2-1.0); Total Protein 7.6 g/dL (6.4-8.2)
[2022-05-23 01:19] LABS: Potassium 5.6 mmol/L (3.5-5.1)
[2022-05-23 01:34] LABS: Red Cell Distribution Width 21.4 % (11.8-14.3)
[2022-05-23] MEDS ORDERED: SODIUM ZIRCONIUM CYCL 10 GM PAK PO ONE (01:45)
[2022-05-23] MEDS ORDERED: SODIUM CHLORIDE 0.9% 500 ML IV ONE (01:45)
[2022-05-23] MEDS ORDERED: CALCIUM GLUC 1,000mg/50ml-NS 50 ML IV ONE (01:45)
[2022-05-23] MEDS ORDERED: FUROSEMIDE 20 MG/2 ML VIAL IV ONE (03:30)
[2022-05-23 03:50] LABS: Urine Bacteria MANY /hpf (None Seen); Urine Blood 1+ /uL (Negative); Urine Hyaline Cast FEW /lpf (0 - 2); Urine Mucus FEW (None Seen); Urine Specific Gravity 1.016 (1.001-1.035); Urine WBC 615 /hpf (0 - 5); Urine WBC Clumps PRESENT /hpf (None Seen)
[2022-05-23 03:51] LABS: Alcohol, Urine < 3.0 mg/dL (0-10); Amphetamine Screen, Urine NEGATIVE (NEGATIVE); Barbiturate Scree,Urine NEGATIVE (NEGATIVE); Benzodiazephine Screen, Urine NEGATIVE (NEGATIVE); Cannabinoid Screen, Urine NEGATIVE (NEGATIVE); Cocaine Screen, Urine NEGATIVE (NEGATIVE); Phencyclidine Screen, Urine NEGATIVE (NEGATIVE)
[2022-05-23 03:59] LABS: Opiate Scree,Urine POSITIVE (NEGATIVE)
[2022-05-23] MEDS ORDERED: CEFEPIME 2 GM in SODIUM CHL 0.9% 50 ML IV ONE (04:15)
[2022-05-23 09:42] LABS: Albumin 2.9 g/dL (3.4-5.0); Calcium 6.2 mg/dL (8.5-10.1); Potassium 5.3 mmol/L (3.5-5.1)
[2022-05-23 10:00] LABS: BUN/Creatinine Ratio 13.4; Bilirubin, Total 3.2 mg/dL (0.2-1.0); Total Protein 7.6 g/dL (6.4-8.2)
[2022-05-23] MEDS ORDERED: ONDANSETRON HCL 4 MG/2 ML VIAL IV ONE (12:15)
[2022-05-23] MEDS ORDERED: MORPHINE SULFATE INJ 2 MG/ml SYRG IV ONE (12:15)
[2022-05-23 18:44] LABS: Albumin 2.9 g/dL (3.4-5.0); Potassium 5.1 mmol/L (3.5-5.1)
[2022-05-23 19:01] LABS: BUN/Creatinine Ratio 15.1; Bilirubin, Total 2.7 mg/dL (0.2-1.0); Total Protein 7.9 g/dL (6.4-8.2)
[2022-05-23 19:05] LABS: Calcium 5.9 mg/dL (8.5-10.1)
[2022-05-23 19:39] LABS: INR 1.67 (0.9-1.15); Partial Thromboplastin Time 28.9 sec (24.6-33.4)
[2022-05-23 19:52] VITALS: BP 129/56
== END 2022-05-23 20:22 | disposition short-term general hospital (02) ==
LOC: EDBD 22:10 → ER 22:10
DX: R41.82 Altered mental status, unspecified (principal); N39.0 Urinary tract infection, site not specified; N17.9 Acute kidney failure, unspecified; E87.5 Hyperkalemia; I11.0 Hypertensive heart disease with heart failure; I50.9 Heart failure, unspecified; E78.5 Hyperlipidemia, unspecified; Z20.822 Contact with and (suspected) exposure to COVID-19
CPT/HCPCS: 36415; 51702; 70450; 71045; 74176; 76705; 80053; 80307; 80320; 81001; 82140; 83605; 83880; 84443; 84484; 85025; 85610; 85730; 87040; 87426; 93005; 96365; 96366; 96367; 96375; 99285; J0610; J0692; J1940